=== PATIENT | female | born 2005 | race Caucasian/White ===

== ENCOUNTER 2024-10-19 07:29 | Emergency (ER) | payer MEDICAID ==
[~2024-10-19] VITALS: Ht 167.6 cm; Wt 68.0 kg
[2024-10-19 07:34] VITALS: O2SAT 100
[2024-10-19] MEDS ORDERED: DOXY100C5 MT (09:12)
[2024-10-19 12:44] VITALS: BP 109/63; PULSE 85; RESP 18; TEMP 37; O2SAT 100
== END 2024-10-19 12:45 | disposition home or self-care (01) ==
LOC: ER 07:29
DX: L02.91 Cutaneous abscess, unspecified (principal)
CPT/HCPCS: 99283; Z7610 ×2